=== PATIENT | male | born 1980 | race Caucasian/White ===

== ENCOUNTER → 2020-01-20 | Emergency (ER) | payer BC, OTHER ==
[~2020-01-20] VITALS: Ht 177.8 cm; Wt 81.8 kg
[~2020-01-20] MED LIST: normal saline 1000ml 1,000 ML IV ONE
[2020-01-20] MEDS: normal saline 1000ml 1,000 ML IV ONE ×2 (23:30→23:52)
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
--- NOTE | 2020-01-21 00:13 | NUR ---
Pt. removed c-collar at this time. He is still refusing diagnostic procedures/tx at this time. is aware.
--- NOTE | 2020-01-21 00:20 | NUR ---
primary rn at lunch. pt in room. pd at bedside. pt remains uncooperative with treatment. pt refuses ct, labs, and has taken c collar off. pt remains tachycardic since arrival. Patient a/ox4. discussed the risks of delaying/refusing tx including the risks of internal injury. pt continues to refuse treatment.
--- NOTE | 2020-01-21 00:41 | NUR ---
Pt. took all monitoring devices off (BP cuff, tele and SPO2). Pt. continues to be uncooperative at this time. MD luna.
--- NOTE | 2020-01-21 01:22 | NUR ---
MD at bedside speaking with pt. Pt. consenting for PIV insertion/lab draw and NS bolus.
[2020-01-21 01:59] LABS: ALANINE AMINOTRANSFERASE 41 U/L (12-78); ALBUMIN 4.6 G/DL (3.4-5.0); ALBUMIN/GLOBULIN RATIO 1.3 (1.1-1.5); ALKALINE PHOSPHATASE 65 IU/L (46-116); ANION GAP 14 (8-16); ASPARTATE AMINO TRANSFERASE 25 U/L (10-37); BILIRUBIN,TOTAL 0.2 MG/DL (0.1-1.0); BLOOD UREA NITROGEN 12 MG/DL (7-18); BUN/CREATININE RATIO 9.2 (5.4-32.0); CALCIUM 8.7 MG/DL (8.5-10.1); CHLORIDE 106 MMOL/L (99-107); CREATININE 1.31 MG/DL (0.60-1.10); GLUCOSE 145 MG/DL (70-104); POTASSIUM 3.8 MMOL/L (3.5-5.1); SODIUM 142 MMOL/L (135-145); TOTAL CARBON DIOXIDE 22.1 MMOL/L (24-32); TOTAL PROTEIN 8.1 G/DL (6.4-8.2); eGFR 61 ML/MIN
[2020-01-21 02:01] LABS: ETHANOL 0.127 GM/DL (0.0-0.010); TROPONIN I < 0.04 NG/ML (0.0-0.05)
[2020-01-21 02:19] LABS: BASOPHILS % (AUTO) 0.4 % (0-1); EOSINOPHILS % (AUTO) 0.2 % (0-6); HEMATOCRIT 47.7 % (42.0-52.0); HEMOGLOBIN 15.9 g/dl (14.0-17.9); LYMPHOCYTES # (AUTO) 1.5 X10'3 (1.1-4.8); LYMPHOCYTES % (AUTO) 16.6 % (21-51); MEAN CORPUSCULAR HEMOGLOBIN 26.9 PG (27.0-31.0); MEAN CORPUSCULAR HGB CONC 33.2 g/dL (33.0-36.5); MEAN CORPUSCULAR VOLUME 80.8 FL (78-98); MEAN PLATELET VOLUME 8.8 FL (7.4-10.4); MONOCYTES # (AUTO) 0.5 X10'3 (0-0.9); MONOCYTES % (AUTO) 6.2 % (2-12); NEUTROPHILS # (AUTO) 6.7 X10'3 (1.8-7.7); NEUTROPHILS % (AUTO) 76.6 % (42-75); PLATELET COUNT 356 X10'3 (140-440); RED BLOOD COUNT 5.91 X10'6 (4.70-6.10); RED CELL DISTRIBUTION WIDTH 13.3 % (11.5-14.5); WHITE BLOOD COUNT 8.7 X10'3 (4.5-11.0)
[2020-01-21 04:00] VITALS: BP 129/93
--- NOTE | 2020-01-21 04:28 | NUR ---
MD at bedside providing education re risks of pt's refusal of diagnostic/further examinations. Pt. demonstatres understanding of education and awareness of the situation. Pt. instructed to return to the ER if symptoms appear or get worse.
== END | disposition home or self-care (01) ==
LOC: ER 23:16
DX: R00.0 Tachycardia, unspecified (principal); R11.0 Nausea; M54.2 Cervicalgia; M54.5 Low back pain; G89.29 Other chronic pain; Z98.890 Other specified postprocedural states; V98.8XXA Other specified transport accidents, initial encounter; Y93.89 Activity, other specified; Y92.410 Unspecified street and highway as the place of occurrence of the external cause; Y99.8 Other external cause status
CPT/HCPCS: 36415; 71045; 80053; 80320; 84484; 85025; 93005; 96360; 96361; 99285; J7030